=== PATIENT | male | born 1995 | race Caucasian/White ===

== ENCOUNTER 2024-01-01 11:04 | Emergency (ER) | payer SELFPAY ==
[~2024-01-01] VITALS: Ht 177.8 cm; Wt 75.7 kg
[2024-01-01 14:50] VITALS: BP 139/65; TEMP 97.7; O2SAT 99
== END 2024-01-01 15:41 | disposition left against medical advice (07) ==
LOC: M ED 11:04
DX: Z53.21 Procedure and treatment not carried out due to patient leaving prior to being seen by health care provider (principal)

== ENCOUNTER → 2024-04-25 | Outpatient (CLI) | payer OTHER | LOC: M RAD 07:46 | PROVIDERS: ATTEND Otolaryngology | DX: J32.4 Chronic pansinusitis (principal) ==